=== PATIENT | male | born 1980 | race Hispanic/Latino ===

== ENCOUNTER 2017-02-09 17:22 | Emergency (ER) | payer OTHER ==
[2017-02-09 17:31] VITALS: BP 159/91; PULSE 99; RESP 16; TEMP 98.1; O2SAT 99
--- NOTE | 2017-02-09 17:47 | ED PDOC ---
HPI: General Adult Time Seen by Provider: 02/09/17 17:31 Chief Complaint (Nursing): ENT Problem Chief Complaint (Provider): Bilateral Facial Pain History Per: Patient History/Exam Limitations: no limitations Onset/Duration Of Symptoms: Days (x4) Have you had recent travel within the past 21 days to any of the following countries: [place], [place], [place] or [place]?: No Current Symptoms Are (Timing): Still Present Additional Complaint(s): Hugh Stubbs, a 36 year old male, presents to the ED complaining of bilateral facial pain x4 days. The patient reports that the pain has resolved on the right side but still persists on the left. He reports that the pain is associated with nasal congestion for which he has been taking sudafed. The patient states that today he took 2 tablets of sudafed and 4 hours later he took another 2. He reports that shortly after taking the medication he began to feel "anxious" and developed numbness to his tongue. Patient states that these symptoms lasted for about 6 seconds. He further reports that a few minutes later the anxiousness returned but without the numbness. Denies rash, shortness of breath, trauma, fever, toothache. PMD: FAMILY PROVIDER,NO Past Medical History Reviewed: Historical Data, Nursing Documentation, Vital Signs Vital Signs: Last Vital Signs Temp 98.1 F 02/09/17 17:27 Pulse 99 H 02/09/17 17:27 Resp 16 02/09/17 17:27 BP 159/91 H 02/09/17 17:27 Pulse Ox 99 02/09/17 17:48 - Medical History PMH: No Chronic Diseases - Surgical History Surgical History: No Surg Hx - Family History Family History: States: No Known Family Hx - Social History Current smoker - smoking cessation education provided: No Ex-Smoker (has not smoked in the last 12 months): No Alcohol: None Drugs: Denies - Home Medications Home Medications: Ambulatory Orders Medication Instructions Recorded Amoxicillin/Clavulanate [Augmentin 1 tab PO BID #20 tab 02/09/17 500 MG-125 MG] Fluticasone Propionate [Flonase] 2 spr NS DAILY PRN #1 bottle 02/09/17 - Allergies Allergies/Adverse Reactions: Allergies Allergy/AdvReac Type Severity Reaction Status Date / Time No Known Allergies Allergy Verified 02/09/17 17:30 Review of Systems ROS Statement: Except As Marked, All Systems Reviewed And Found Negative Constitutional: Negative for: Fever ENT: Positive for: Other (bilateral facial pain) Respiratory: Negative for: Shortness of Breath Skin: Negative for: Rash Neurological: Negative for: Numbness Psych: Positive for: Anxiety Physical Exam - Reviewed Nursing Documentation Reviewed: Yes Vital Signs Reviewed: Yes - Physical Exam Appears: Positive for: Non-toxic, No Acute Distress Head Exam: Positive for: ATRAUMATIC, NORMAL INSPECTION (maller tenderness but no swelling), NORMOCEPHALIC Skin: Positive for: Normal Color, Warm, Dry. Negative for: Rash ENT: Positive for: Nasal Congestion, Other (no tongue swelling or deviation of tongue). Negative for: Pharyngeal Erythema Cardiovascular/Chest: Positive for: Regular Rate, Rhythm, Chest Non Tender. Negative for: Tachycardia Respiratory: Positive for: Normal Breath Sounds. Negative for: Wheezing, Respiratory Distress Neurologic/Psych: Positive for: Alert, Oriented, Cerebellar Tests (cerebellar tests normal), Gait. Negative for: Motor/Sensory Deficits - ECG O2 Sat by Pulse Oximetry: 99 (RA) Pulse Ox Interpretation: Normal Medical Decision Making Medical Decision Makin Initial Impression 36 y/o male presenting with b/l facial pain Initial Plan: * Reevaluation Patient informed that his current symptoms are likely due to side effects of the decongestant. Patient reports no feelings of anxiety at this time. Upon provider reevaluation patient is medically stable and requires no further treatment in the ED at this time. Patient will be discharged home with prescription for augmentin and flonase. Scribe Attestation Documented by Ioana Mccurdy acting as a scribe for Arnol Betancourt PA-C. Scribe Attestation All medical record entries made by the Scribe were at my direction and personally dictated by me. I have reviewed the chart and agree that the record accurately reflects my personal performance of the history, physical exam, medical decision making, and the department course for this patient. I have also personally directed, reviewed, and agree with the discharge instructions and disposition. Disposition - Clinical Impression Clinical Impression: Sinusitis, acute, Medication reaction - Patient ED Disposition Is Patient to be Admitted: No - Disposition [facility] Disposition: Routine/Home Disposition Time: 17:46 Condition: STABLE Prescriptions: Amoxicillin/Clavulanate [Augmentin 500 MG-125 MG] 1 tab PO BID #20 tab Fluticasone Propionate [Flonase] 2 spr NS DAILY PRN #1 bottle PRN Reason: Allergy Symptoms Instructions: Sinusitis (ED) Forms: [facility] (Danish) Print Language: GABONESE - POA Present On Arrival: None
== END 2017-02-09 18:06 | disposition home or self-care (01) ==
LOC: H.ER 17:22
DX: J01.90 Acute sinusitis, unspecified (principal); Z87.891 Personal history of nicotine dependence